=== PATIENT | female | born 1950 | race Caucasian/White ===

== ENCOUNTER 2016-09-22 12:27 | Observation (INO) | payer MEDICARE, OTHER ==
[~2016-09-22] VITALS: Ht 162.6 cm; Wt 65.0 kg
[~2016-09-22 12:27] MED LIST: FURO20 PO; IBUP800T23 PO; SYNT25TA PO; [UNRECOGNIZED DRUG - CODE] PO
[2016-09-22 12:29] VITALS: BP 157/73; PULSE 75; RESP 14; TEMP 97.8; O2SAT 100
[2016-09-22 15:24] VITALS: BP 166/76; PULSE 70; RESP 19; O2SAT 98
[2016-09-22] MEDS ORDERED: DIAZ10TA PO (15:30)
[2016-09-22] MEDS ORDERED: OXYC-395 PO (15:30)
[2016-09-22] MEDS ORDERED: REME15TA PO (15:30)
[2016-09-22] MEDS ORDERED: ONDA1TAB17 PO (15:30)
[2016-09-22] MEDS ORDERED: BUPR150T3 PO (15:30)
[2016-09-22] MEDS ORDERED: FURO40TA PO (15:30)
[2016-09-22] MEDS ORDERED: LEVO100T5 PO (15:30)
[2016-09-22] MEDS ORDERED: [UNRECOGNIZED DRUG - OTHER] PO (15:34)
[2016-09-22] MEDS ORDERED: CINN500C PO (15:43)
[2016-09-22] MEDS ORDERED: VITA8000 PO (15:43)
[2016-09-22] MEDS ORDERED: CHOL100025 CHEW (15:43)
[2016-09-22] MEDS ORDERED: POTA10CA PO (15:43)
[2016-09-22] MEDS ORDERED: OMEG100010 (15:43)
[2016-09-22] MEDS ORDERED: PROBCAP11 (15:43)
[2016-09-22] MEDS ORDERED: DENO120P SQ (15:43)
--- NOTE | 2016-09-22 16:35 | RADRPT ---
EXAM DATE/TIME: 09/22/2016 16:22 [facility] COMPARISON: CT SIMULATION, October 06, 2013, 15:33. INDICATIONS : Patient states she feels weak in right hand since Sep.17. MEDICAL HISTORY : None. SURGICAL HISTORY : None. ENCOUNTER: Initial ACUITY: 1 day PAIN SCORE: 0/10 LOCATION: Bilateral chest FINDINGS: The heart is normal in size. The lungs are clear. The exam does demonstrate an expansile mass involvi ng the right eighth posterior rib. CONCLUSION: 1. Densely calcified expansile mass involving the right posterior eighth rib concerning for metastati c disease. 2. The lungs are clear. Carlos Chand MD on September 22, 2016 at 16:32 Board Certified Radiologist. This report was verified electronically.
--- NOTE | 2016-09-22 16:59 | PD ---
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 The patient states that she is undergoing trial chemotherapy from the [facility] in [place]. She states when she called her physician there, they told her to come in and be evaluated at the closest ER. The patient denies any history of metastatic cervical lesions. She denies any rate metastases at this time. There are no other complaints time my examination. PFSH Past Medical History Anxiety: Yes Cancer: Yes (LEFT BREAST CA TREATED WITH RADIATION AND ORAL CHEMO, METS TO BONE ) High Cholesterol: Yes Chemotherapy: Yes (ORAL ) Diabetes: No Diminished Hearing: No Hepatitis: No Hiatal Hernia: No Thyroid Disease: Yes (HYPO) Tetanus Vaccination: Unknown ?: Not Menopausal: Yes Past Surgical History Hysterectomy: Yes Pacemaker: No Other Surgery: Yes (R BREAST LUMPECTOMY, RECONSTRUCTION SURGERY) Social History Alcohol Use: No Tobacco Use: No Substance Use: No Allergies-Medications (Allergen,Severity, Reaction): Coded Allergies: No Known Allergies (Unverified , 09/22/16) Reported Meds & Prescriptions Reported Meds & Active Scripts Active Reported Probiotic (Probiotic Product) 1 Cap Cap Xgeva Inj (Denosumab) 120 Mg/1.7 Ml Inj 120 Mg SQ Q28D [place] 3 1000 mg ([place]-3 Fatty Acids) 1 Cap Cap Cinnamon 500 Mg Cap 1,000 Mg PO DAILY Vitamin A 8,000 Unit Cap 8,000 Units PO DAILY Vitamin D3 (Cholecalciferol) 1,000 Unit Chew 1,000 Units CHEW DAILY Potassium Chloride ER (Potassium Chloride) 10 Meq Cap 10 Meq PO DAILY [Z-Endoxifen] 80 Mg PO DAILY Furosemide 40 Mg Tab 40 Mg PO DAILY Oxycodone (Oxycodone HCl) 10 Mg Tab 10 Mg PO Q4H PRN Bupropion HCl ER 24 HR (Bupropion HCl) 150 Mg Tab 150 Mg PO DAILY Levothyroxine (Levothyroxine Sodium) 100 Mcg Tab 100 Mcg PO DAILY Ondansetron (Ondansetron HCl) 8 Mg Tab 8 Mg PO TID PRN Diazepam 10 Mg Tab 10 Mg PO TID PRN Remeron (Mirtazapine) 15 Mg Tab 15 Mg PO HS Review of Systems Except as stated in HPI: all other systems reviewed are Neg General / Constitutional: No: Fever, Chills Eyes: No: Diploplia, Blurred Vision HENT: No: Headaches, Lightheadedness, Neck Pain Cardiovascular: No: Chest Pain or Discomfort, Palpitations Gastrointestinal: No: Nausea, Vomiting Musculoskeletal: Positive: Weakness (of right upper extremity), Other (she does have a bony met in the right shoulder.) Neurologic: Positive: Weakness (weakness and paresthesias of the right upper extremity.), Other (area orbital paresthesia.), No: Headache, Change in Mentation, Slurred Speech Physical Exam Narrative GENERAL: Well-developed well-nourished female in no acute respiratory distress. The patient was wearing a facemask because she is undergoing chemotherapy. SKIN: Warm and dry. HEAD: Atraumatic. Normocephalic. EYES: Pupils equal and round. No scleral icterus. No injection or drainage. ENT: TMs clear bilaterally NECK: Trachea midline. Supple CARDIOVASCULAR: Regular rate and rhythm. No murmur appreciated. RESPIRATORY: Clear to auscultation. Breath sounds equal bilaterally. GASTROINTESTINAL: Abdomen soft, non-tender, nondistended. Hepatic and splenic margins not palpable. MUSCULOSKELETAL: No obvious deformities. No clubbing. No cyanosis. No edema. NEUROLOGICAL: Awake and alert. No obvious cranial nerve deficits. Motor grossly within normal limits. Normal speech. I did not appreciate any weakness to her upper extremities when compared with each other. PSYCHIATRIC: Appropriate mood and affect; insight and judgment normal. Data Data Last Documented VS Vital Signs Date Time Temp Pulse Resp B/P Pulse Ox O2 Delivery O2 Flow Rate FiO2 09/22/16 19:00 72 19 137/68 98 Room Air 09/22/16 12:29 97.8 Orders Mri Brain W&W/O Contrast (09/22/16 ) Mri C Spine W&W/O Contrast (09/22/16 ) Complete Blood Count With Diff (09/22/16 15:58) Comprehensive Metabolic Panel (09/22/16 15:58) Urinalysis - C+S If Indicated (09/22/16 15:58) Magnesium (Mg) (09/22/16 15:58) Phosphorus (Po4) (09/22/16 15:58) Chest, Single Ap (09/22/16 15:58) Iv Access Insert/Monitor (09/22/16 15:58) Ecg Monitoring (09/22/16 15:58) Oximetry (09/22/16 15:58) Gadodiamide Pf Inj (Omniscan Pf Inj) (09/22/16 19:44) Dexamethasone Inj (Decadron Inj) (09/22/16 21:00) Admit Order (Ed Use Only) (09/22/16 21:58) Labs Laboratory Tests Test 09/22/16 16:00 White Blood Count 6.4 TH/MM3 Red Blood Count 3.73 MIL/MM3 Hemoglobin 10.9 GM/DL Hematocrit 32.9 % Mean Corpuscular Volume 88.2 FL Mean Corpuscular Hemoglobin 29.3 PG Mean Corpuscular Hemoglobin 33.2 % Concent Red Cell Distribution Width 15.3 % Platelet Count 263 TH/MM3 Mean Platelet Volume 7.0 FL Neutrophils (%) (Auto) 71.9 % Lymphocytes (%) (Auto) 14.6 % Monocytes (%) (Auto) 10.0 % Eosinophils (%) (Auto) 2.9 % Basophils (%) (Auto) 0.6 % Neutrophils # (Auto) 4.6 TH/MM3 Lymphocytes # (Auto) 0.9 TH/MM3 Monocytes # (Auto) 0.6 TH/MM3 Eosinophils # (Auto) 0.2 TH/MM3 Basophils # (Auto) 0.0 TH/MM3 CBC Comment DIFF FINAL Differential Comment Sodium Level 137 MEQ/L Potassium Level 4.5 MEQ/L Chloride Level 104 MEQ/L Carbon Dioxide Level 26.5 MEQ/L Anion Gap 7 MEQ/L Blood Urea Nitrogen 20 MG/DL Creatinine 1.05 MG/DL Estimat Glomerular Filtration 52 ML/MIN Rate Random Glucose 91 MG/DL Calcium Level 8.4 MG/DL Phosphorus Level 3.6 MG/DL Magnesium Level 2.3 MG/DL Total Bilirubin 0.3 MG/DL Aspartate Amino Transf 17 U/L (AST/SGOT) Alanine Aminotransferase 25 U/L (ALT/SGPT) Alkaline Phosphatase 48 U/L Total Protein 6.6 GM/DL Albumin 3.5 GM/DL MDM Medical Decision Making Medical Screen Exam Complete: Yes Emergency Medical Condition: Yes Differential Diagnosis Cervical metastases versus intracranial metastases versus electrolyte abnormalities Narrative Course 66-year-old female with an unfortunate history of metastatic breast cancer, presents here with complaints of right upper extremity weakness and paresthesias as well as periorbital paresthesias. Patient was told to come to the nearest emergency department by her physicians at the [facility] in [place]. The patient has no focal weakness on my examination. Laboratory tests including CBC and BMP mag and phosphate were ordered. An MRI of the brain and cervical spine was also ordered. All of these tests were pending and the patient was signed out to Dr. Amor, physician replacing this physician. Disposition and further treatment will be per Dr. Amor. Diagnoses: Right upper extremity weakness and paresthesias. Periorbital paresthesias, resolved. History of metastatic breast cancer. Jcarlos Granda MD Sep 22, 2016 16:59
[2016-09-22 17:00] VITALS: BP 140/65; PULSE 70; RESP 18; O2SAT 97
[2016-09-22 17:10] LABS: AUTOMATED NEUTROPHIL # 4.6 TH/MM3 (1.8-7.7); BASOPHIL % 0.6 % (0.0-2.0); EOSINOPHIL # 0.2 TH/MM3 (0-0.4); EOSINOPHIL % 2.9 % (0.0-4.0); HEMATOCRIT 32.9 % (35.0-46.0); HEMO FLAGS DIFF FINAL; LYMPH % 14.6 % (9.0-44.0); LYMPHOCYTE # 0.9 TH/MM3 (1.0-4.8); MEAN CELL VOLUME 88.2 FL (80.0-100.0); MEAN CORPUSCULAR HEMOGLOBIN 29.3 PG (27.0-34.0); MEAN CORPUSCULAR HGB CONC 33.2 % (32.0-36.0); NEUT % 71.9 % (16.0-70.0); PLATELET COUNT 263 TH/MM3 (150-450); RED BLOOD COUNT 3.73 MIL/MM3 (4.00-5.30); RED CELL DISTRIBUTION WIDTH 15.3 % (11.6-17.2); WHITE BLOOD COUNT 6.4 TH/MM3 (4.0-11.0)
[2016-09-22 17:35] LABS: ANION GAP 7 MEQ/L (5-15); AST (GOT) 17 U/L (15-37); BICARBONATE 26.5 MEQ/L (21.0-32.0); BLOOD UREA NITROGEN 20 MG/DL (7-18); CHLORIDE 104 MEQ/L (98-107); GLOMERULAR FILTRATION RATE 52 ML/MIN (>89); MAGNESIUM 2.3 MG/DL (1.5-2.5); POTASSIUM 4.5 MEQ/L (3.5-5.1); SODIUM (NA) 137 MEQ/L (136-145)
[2016-09-22 17:38] LABS: ALKALINE PHOSPHATASE 48 U/L (45-117); ALT (GPT) 25 U/L (10-53); TOTAL BILIRUBIN ADULT 0.3 MG/DL (0.2-1.0)
[2016-09-22 19:00] VITALS: BP 137/68; PULSE 72; RESP 19; O2SAT 98
[2016-09-22] MEDS ORDERED: GADODIAMIDE PF 287 MG/ML 5 ML VIAL (for RAD MRI) IV ONE (19:44)
--- NOTE | 2016-09-22 20:05 | RADRPT ---
EXAM DATE/TIME: 09/22/2016 19:13 [facility] COMPARISON: No previous studies available for comparison. INDICATIONS : Metastatic disease. Weakness right side. CONTRAST: 12 cc Omniscan (gadodiamide) IV MEDICAL HISTORY : Metastatic, brain. SURGICAL HISTORY : Hysterectomy. Lumpectomy. ENCOUNTER: Initial ACUITY: 2 day PAIN SCORE: 0/10 LOCATION: c-spine TECHNIQUE: Multiplanar, multisequence MRI examination of the cervical spine was performed. FINDINGS: VERTEBRAE: There are areas of marrow signal alteration involving vertebral elements which are worrisome for meta static disease associated with vague diffuse enhancement. These most conspicuously involve the C2, C6 and T2 vertebral bodies. No significant associated soft tissue mass or anatomic compromise. ALIGNMENT: No evidence of subluxation. CORD: Normal configuration and signal. POST FOSSA: The cerebellar tonsils are normal in position. POST-CONTRAST: No abnormal areas of enhancement are seen. C2-C3: The thecal sac has a normal configuration. There is no evidence of disc herniation or spinal canal stenosis. The neural foramina are patent bilaterally. C3-C4: The thecal sac has a normal configuration. There is no evidence of disc herniation or spinal canal s tenosis. The neural foramina are patent bilaterally. C4-C5: Minimal broad undulating dorsal disc protrusion slightly indenting the thecal sac without significant associated canal or foraminal compromise. C5-C6: Minimal broad dorsal disc protrusion slightly indenting ventral thecal sac without significant canal or foraminal compromise. C6-C7: Minimal broad undulating dorsal disc protrusion slightly indenting ventral thecal sac without signifi cant canal or foraminal compromise. C7-T1: The thecal sac has a normal configuration. There is no evidence of disc herniation or spinal canal s tenosis. The neural foramina are patent bilaterally. CONCLUSION: Probable bony metastatic disease at several levels. Mild disc disease changes. Tomer Caceres MD on September 22, 2016 at 19:58 Board Certified Radiologist. This report was verified electronically.
--- NOTE | 2016-09-22 20:29 | RADRPT ---
EXAM DATE/TIME: 09/22/2016 19:13 [facility] COMPARISON: No previous studies available for comparison. INDICATIONS : Metastatic disease. CONTRAST: 12 cc Omniscan (gadodiamide) IV MEDICAL HISTORY : Metastatic, breast. SURGICAL HISTORY : Hysterectomy. Lumpectomy. ENCOUNTER: Initial ACUITY: 2 day PAIN SCORE: 0/10 LOCATION: head TECHNIQUE: Multiplanar, multisequence MRI of the brain was performed both prior to and following the administrat ion of paramagnetic contrast. FINDINGS: There is an infiltrating mass involving the left frontoparietal calvarium with extension intracranial ly and extracranially. The intracranial component has a thickness of about 18 mm and significantly co mpresses the underlying brain. There is moderate vasogenic edema involving the left parietal and occi pital brain, however I do not clearly see any abnormal brain parenchymal contrast enhancement. There is moderate compression of the lateral lateral ventricle posterior horn. Minimal subfalcine shift fro m left to right on the order of a few millimeters. The paramesencephalic cisterns on the left are gisselle wing early effacement. Elsewhere, the marrow signal of the calvarium shows fairly widespread signal h eterogeneity worrisome for infiltrating neoplastic involvement of much of the remaining skull without significant associated extraosseous soft tissue extension. There is no evidence of intracranial hemorrhage. There is nothing to suggest acute infarction. 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 Left parietal calvarial neoplastic involvement associated w ith significant intra-and extracranial soft tissue component with moderate signal changes and aditya esteban of the underlying left parieto-occipital brain. Tomer Caceres MD on September 22, 2016 at 20:19 Board Certified Radiologist. This report was verified electronically.
--- NOTE | 2016-09-22 20:33 | PD ---
Physical Exam Narrative Received sign out from previous team to follow up results of MRI brain and cervical spine. Please refer to Dr. Granda's note for full history. Pt is a 66yo F with PMH of metastatic breast cancer with metastasis to the spine. Pt follows with oncologist Dr. Marshall at [facility]. She also follows with Dr. Foley. Pt is complaining of weakness in her right car salter for 3 days. Feels that when she picks up objects, it slips out. On my examination and previous provider's she had full car salter and muscle strength in bilateral upper extremities. Sensation equal. No cervical spine ttp. Neuro exam was normal for me. CXR showed densely calcified expansile mass right posterior eighth rib concerning for metastatic disease. Pt has no c/o chest pain or sob. MRI brain showed presumed metastatic disease to skull. Left parietal calvarial neoplastic involvement associated with significant intra and extracranial soft tissue component with moderate signal changes and compression of underlying left parieto-occipital brain. MRI cervical spine showed probable bony metastatic disease at several levels. Pt is currently on endoxifen trial at [facility] 8mg daily for [address] Baig who is covering Dr. Marshall and she recommended decadron, admission for observation and consulting radiation oncology. Dr. Baig states the metastasis to the brain is new. Discussed with pt and she agrees with plan. Discussed with Dr. Valdovinos and accepted for admission. Data Data Last Documented VS Vital Signs Date Time Temp Pulse Resp B/P Pulse Ox O2 Delivery O2 Flow Rate FiO2 09/22/16 19:00 72 19 137/68 98 Room Air 09/22/16 12:29 97.8 Orders Mri Brain W&W/O Contrast (09/22/16 ) Mri C Spine W&W/O Contrast (09/22/16 ) Complete Blood Count With Diff (09/22/16 15:58) Comprehensive Metabolic Panel (09/22/16 15:58) Urinalysis - C+S If Indicated (09/22/16 15:58) Magnesium (Mg) (09/22/16 15:58) Phosphorus (Po4) (09/22/16 15:58) Chest, Single Ap (09/22/16 15:58) Iv Access Insert/Monitor (09/22/16 15:58) Ecg Monitoring (09/22/16 15:58) Oximetry (09/22/16 15:58) Gadodiamide Pf Inj (Omniscan Pf Inj) (09/22/16 19:44) Dexamethasone Inj (Decadron Inj) (09/22/16 21:00) Admit Order (Ed Use Only) (09/22/16 21:58) Labs Laboratory Tests Test 09/22/16 16:00 White Blood Count 6.4 TH/MM3 Red Blood Count 3.73 MIL/MM3 Hemoglobin 10.9 GM/DL Hematocrit 32.9 % Mean Corpuscular Volume 88.2 FL Mean Corpuscular Hemoglobin 29.3 PG Mean Corpuscular Hemoglobin 33.2 % Concent Red Cell Distribution Width 15.3 % Platelet Count 263 TH/MM3 Mean Platelet Volume 7.0 FL Neutrophils (%) (Auto) 71.9 % Lymphocytes (%) (Auto) 14.6 % Monocytes (%) (Auto) 10.0 % Eosinophils (%) (Auto) 2.9 % Basophils (%) (Auto) 0.6 % Neutrophils # (Auto) 4.6 TH/MM3 Lymphocytes # (Auto) 0.9 TH/MM3 Monocytes # (Auto) 0.6 TH/MM3 Eosinophils # (Auto) 0.2 TH/MM3 Basophils # (Auto) 0.0 TH/MM3 CBC Comment DIFF FINAL Differential Comment Sodium Level 137 MEQ/L Potassium Level 4.5 MEQ/L Chloride Level 104 MEQ/L Carbon Dioxide Level 26.5 MEQ/L Anion Gap 7 MEQ/L Blood Urea Nitrogen 20 MG/DL Creatinine 1.05 MG/DL Estimat Glomerular Filtration 52 ML/MIN Rate Random Glucose 91 MG/DL Calcium Level 8.4 MG/DL Phosphorus Level 3.6 MG/DL Magnesium Level 2.3 MG/DL Total Bilirubin 0.3 MG/DL Aspartate Amino Transf 17 U/L (AST/SGOT) Alanine Aminotransferase 25 U/L (ALT/SGPT) Alkaline Phosphatase 48 U/L Total Protein 6.6 GM/DL Albumin 3.5 GM/DL [facility] Supervised Visit with [facility]: No Diagnosis Primary Impression: Metastatic cancer to brain Admitting Information Admitting Physician Requests: Observation Scripts Glucocom Test Strips 1 Dora Dora #1 Ea .route As Directed Prov:Domonique Madrigal PA-C 09/23/16 Lancets 1 Mis Mis #1 EA .ROUTE DIRECTED Ref 0 Prov:Domonique Madrigal PA-C 09/23/16 Blood Glucose Monitoring W/Device (Glucocom Blood Glucose Mo W/Device)1 Kit Kit #1 Kit .route As Directed Prov:Domonique Madrigal PA-C 09/23/16 Pantoprazole 40 Mg Tab40 Mg PO DAILY #7 TAB Prov:Domonique Madrigal PA-C 09/23/16 Dexamethasone 4 Mg Tab4 Mg PO Q6HR #28 TAB Ref 0 Prov:Domonique Madrigal PA-C 09/23/16 Naheed Amor DO Sep 22, 2016 20:33
[2016-09-22] MEDS ORDERED: DEXAMETHASONE SOD PHOS 20 MG/5 ML VIAL IV PUSH ONE (21:00)
[2016-09-22] MEDS ORDERED: SODIUM CHLORIDE 0.9% FLUSH 5 ML FLUSH FLUSH PRN (22:00)
[2016-09-22] MEDS ORDERED: PANTOPRAZOLE SODIUM 40 MG VIAL IV PUSH SCH (22:00)
[2016-09-22] MEDS ORDERED: NALOXONE HCL 0.4 MG/ML AMP IV PRN (22:00)
[2016-09-22] MEDS ORDERED: MORPHINE SULFATE 4 MG/ML INJ IV PUSH PRN (22:15)
[2016-09-22] MEDS ORDERED: ONDANSETRON HCL 4 MG/2 ML VIAL IV PUSH PRN (22:15)
[2016-09-22] MEDS ORDERED: DIAZEPAM 10 MG TAB PO PRN (22:15)
[2016-09-22 23:41] VITALS: BP 134/75
[2016-09-23 00:09] VITALS: BP 253/118
[2016-09-23 00:15] VITALS: BP 121/67; PULSE 69; RESP 18; TEMP 97.8; O2SAT 95
[2016-09-23 00:47] VITALS: PULSE 64
[2016-09-23] MEDS: DEXAMETHASONE SOD PHOS 4 MG/ML VIAL IV PUSH SCH ×2 (02:52→08:51)
[2016-09-23 04:24] VITALS: BP 116/66; PULSE 65; RESP 20; TEMP 97.6; O2SAT 96
[2016-09-23] MEDS ORDERED: ACETAMINOPHEN 325 MG TAB PO PRN (04:45)
[2016-09-23] MEDS ORDERED: CALCIUM CARBONATE 500 MG CHEWABLE TAB CHEW PRN (04:45)
[2016-09-23] MEDS ORDERED: DOCUSATE SODIUM 50 MG/SENNA 8.6 MG TAB PO PRN (04:45)
[2016-09-23] MEDS ORDERED: DOCUSATE SODIUM 100 MG CAP PO PRN (04:45)
[2016-09-23 05:24] LABS: BASOPHIL % 0.3 % (0.0-2.0); EOSINOPHIL % 0.1 % (0.0-4.0); HEMATOCRIT 32.2 % (35.0-46.0); HEMO FLAGS DIFF FINAL; LYMPH % 8.3 % (9.0-44.0); LYMPHOCYTE # 0.6 TH/MM3 (1.0-4.8); MEAN CORPUSCULAR HEMOGLOBIN 29.7 PG (27.0-34.0); MEAN CORPUSCULAR HGB CONC 34.1 % (32.0-36.0); MONO % 1.5 % (0.0-8.0); NEUT % 89.8 % (16.0-70.0); PLATELET COUNT 249 TH/MM3 (150-450); WHITE BLOOD COUNT 6.7 TH/MM3 (4.0-11.0)
--- NOTE | 2016-09-23 05:35 | HHI.HP ---
[facility] Primary Care Physician No Primary Care Physician Admission Diagnosis Metastatic cancer to brain Diagnoses: Chief Complaint: Right hand weakness Travel History International Travel<30 Days: No Contact w/Intl Traveler <30 Da: No Traveled to Known Affected Are: No History of Present Illness History taken from patient and ED physician. This is a very pleasant 64-year-old female with a history of breast cancer with metastases to the brain, lung and spine who is currently in a chemotherapy trial at [facility]. Patient came in to the ED with complaints of right hand weakness that began on , she noticed she was not able to hold objects in her hand without dropping them. Per the ER physician her radiation oncologist from [facility] was called and they recommended her be admitted for an evaluation by radiation oncology and started on Decadron. Dr. Foley is her oncologist at [facility]. Patient denies any associated symptoms apart from the right hand weakness, no chest pain, short of breath or fevers. She does present with bilateral lower extremity +1 edema, in which she states is normal and there has been no increase in her lower extremities. She denies any calf tenderness, or history of DVTs or PEs. Review of Systems Constitutional: DENIES: Fever, Chills Respiratory: DENIES: Cough, Shortness of breath Cardiovascular: COMPLAINS OF: Lower Extremity Edema (chronic), DENIES: Chest pain, Syncope Gastrointestinal: DENIES: Constipation, Diarrhea, Nausea, Vomiting Musculoskeletal: DENIES: Back pain, Neck pain Integumentary: DENIES: Rash Hematologic/lymphatic: DENIES: Lymphadenopathy Immunologic/allergic: DENIES: Urticaria Neurologic: COMPLAINS OF: Localized weakness Past Family Social History Past Medical History Hyperthyroidism Depression Anxiety Breast cancer 2005-post oral chemotherapy and lumpectomy Lumbar spine CA-radiation 2011 Dyslipidemia Past Surgical History Lumpectomy Hysterectomy Reported Medications Reported Meds & Active Scripts Active Reported Probiotic (Probiotic Product) 1 Cap Cap Xgeva Inj (Denosumab) 120 Mg/1.7 Ml Inj 120 Mg SQ Q28D [place] 3 1000 mg ([place]-3 Fatty Acids) 1 Cap Cap Cinnamon 500 Mg Cap 1,000 Mg PO DAILY Vitamin A 8,000 Unit Cap 8,000 Units PO DAILY Vitamin D3 (Cholecalciferol) 1,000 Unit Chew 1,000 Units CHEW DAILY Potassium Chloride ER (Potassium Chloride) 10 Meq Cap 10 Meq PO DAILY [Z-Endoxifen] 80 Mg PO DAILY Furosemide 40 Mg Tab 40 Mg PO DAILY Oxycodone (Oxycodone HCl) 10 Mg Tab 10 Mg PO Q4H PRN Bupropion HCl ER 24 HR (Bupropion HCl) 150 Mg Tab 150 Mg PO DAILY Levothyroxine (Levothyroxine Sodium) 100 Mcg Tab 100 Mcg PO DAILY Ondansetron (Ondansetron HCl) 8 Mg Tab 8 Mg PO TID PRN Diazepam 10 Mg Tab 10 Mg PO TID PRN Remeron (Mirtazapine) 15 Mg Tab 15 Mg PO HS Allergies: Coded Allergies: No Known Allergies (Unverified , 09/22/16) Active Ordered Medications Current Medications Medications (Trade) Dose Ordered Sig/Kiana Route Start Time Stop Time Status Last Admin (NS Flush) 2 ml UNSCH PRN FLUSH 09/22/16 22:00 (NS Flush) 2 ml BID FLUSH 09/23/16 09:00 (Lovenox Inj) 40 mg Q24H SQ 09/23/16 09:00 (Narcan Inj) 0.4 mg UNSCH PRN IV 09/22/16 22:00 (Decadron Inj) 4 mg Q6H IV PUSH 09/23/16 03:00 09/23/16 02:52 (Wellbutrin Sr) 150 mg DAILY PO 09/23/16 09:00 (Valium) 10 mg TID PRN PO 09/22/16 22:15 (Lasix) 40 mg DAILY PO 09/23/16 09:00 (Synthroid) 100 mcg DAILY@0600 PO 09/23/16 06:00 09/23/16 05:06 (Remeron) 15 mg HS PO 09/23/16 21:00 (Morphine Inj) 2 mg Q3H PRN IV PUSH 09/22/16 22:15 (Zofran Inj) 4 mg Q6HR PRN IV PUSH 09/22/16 22:15 (Roxicodone) 10 mg Q4H PRN PO 09/23/16 04:45 (Tylenol) 650 mg Q4H PRN PO 09/23/16 04:45 (Colace) 100 mg BID PRN PO 09/23/16 04:45 (Caitlin-Colace) 1 tab BID PRN PO 09/23/16 04:45 (Tums Chew) 1,000 mg TID PRN CHEW 09/23/16 04:45 (Protonix) 40 mg DAILY PO 09/23/16 09:00 Family History Dad: CAD, cancer Mom: [place] Social History Tobacco use: Denies Alcohol use: Denies Illicit drug use: Denies Physical Exam Vital Signs Vital Signs Date Time Temp Pulse Resp B/P Pulse Ox O2 Delivery O2 Flow Rate FiO2 09/23/16 04:24 97.6 65 20 116/66 96 09/23/16 00:47 64 09/23/16 00:15 97.8 69 18 121/67 95 09/23/16 00:09 09/22/16 23:41 70 19 134/75 99 09/22/16 19:00 72 19 137/68 98 Room Air 09/22/16 17:00 70 18 140/65 97 Room Air 09/22/16 15:31 77 18 99 Room Air 09/22/16 15:24 70 19 166/76 98 Room Air 09/22/16 12:29 97.8 75 14 157/73 100 Room Air Physical Exam GENERAL: This is a well-nourished, pleasant patient, in no apparent distress. SKIN: No rashes, ecchymoses or lesions. Cool and dry. HEAD: Atraumatic. Normocephalic. EYES: Pupils equal round and reactive. ENT: Nose without bleeding, purulent drainage or septal hematoma. Airway patent. NECK: Trachea midline. No JVD CARDIOVASCULAR: Regular rate and rhythm without murmurs, gallops, or rubs. RESPIRATORY: Clear to auscultation. Breath sounds equal bilaterally. No wheezes , rales, or rhonchi. GASTROINTESTINAL: Abdomen soft, non-tender, nondistended. MUSCULOSKELETAL: Bilateral lower extremity +1 edema. No calf tenderness. NEUROLOGICAL: Awake and alert. Decreased fine motor in right hand. 4 out of 5 muscle strength in right hand. Normal speech. Laboratory Laboratory Tests Test 09/22/16 16:00 White Blood Count 6.4 Red Blood Count 3.73 Hemoglobin 10.9 Hematocrit 32.9 Mean Corpuscular Volume 88.2 Mean Corpuscular Hemoglobin 29.3 Mean Corpuscular Hemoglobin 33.2 Concent Red Cell Distribution Width 15.3 Platelet Count 263 Mean Platelet Volume 7.0 Neutrophils (%) (Auto) 71.9 Lymphocytes (%) (Auto) 14.6 Monocytes (%) (Auto) 10.0 Eosinophils (%) (Auto) 2.9 Basophils (%) (Auto) 0.6 Neutrophils # (Auto) 4.6 Lymphocytes # (Auto) 0.9 Monocytes # (Auto) 0.6 Eosinophils # (Auto) 0.2 Basophils # (Auto) 0.0 CBC Comment DIFF FINAL Differential Comment Sodium Level 137 Potassium Level 4.5 Chloride Level 104 Carbon Dioxide Level 26.5 Anion Gap 7 Blood Urea Nitrogen 20 Creatinine 1.05 Estimat Glomerular Filtration 52 Rate Random Glucose 91 Calcium Level 8.4 Phosphorus Level 3.6 Magnesium Level 2.3 Total Bilirubin 0.3 Aspartate Amino Transf 17 (AST/SGOT) Alanine Aminotransferase 25 (ALT/SGPT) Alkaline Phosphatase 48 Total Protein 6.6 Albumin 3.5 Result Diagram: 09/22/16 1600 09/22/16 1600 Imaging Last Impressions Chest X-Ray 09/22/16 1558 Signed Impressions: Service Date/Time: Thursday, September 22, 2016 16:22 - CONCLUSION: 1. Densely calcified expansile mass involving the right posterior eighth rib concerning for metastatic disease. 2. The lungs are clear. Carlos Chand MD Cervical Spine MRI 09/22/16 0000 Signed Impressions: Service Date/Time: Thursday, September 22, 2016 19:13 - CONCLUSION: Probable bony metastatic disease at several levels. Mild disc disease changes. 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 Left parietal calvarial neoplastic involvement associated with significant intra-and extracranial soft tissue component with moderate signal changes and compression of the underlying left parieto- occipital brain. Tomer Caceres MD Assessment and Plan Problem List: (1) Metastatic cancer to brain ICD Code: C79.31 Status: Acute (2) Anxiety and depression ICD Code: F41.9 Status: Acute (3) Hypothyroidism ICD Code: E03.9 Status: Acute Assessment and Plan 66-year-old female with a history of hypothyroidism, depression, anxiety, breast cancer with metastases to the brain and spine presented with: Metastatic cancer to brain/spine Images reviewed: Brain MRI shows presumed metastatic disease to the skull, left parietal calvarial or neoplastic involvement associated with significant intra- and extracranial soft tissues Chest x-ray shows densely calcified mass involving the right posterior eighth rib, cervical spine x-ray shows bone metastatic disease at several levels. - ER physician did consult with [facility] oncology -Consulted radiation oncology -Dexamethasone IV every 6 -Neuro checks -Pain management with IV morphine and Roxicodone every 4 Anxiety/depression, chronic -Resume home medications: Wellbutrin, BuSpar, Valium Hypothyroidism, chronic -Resumed home medications levothyroxine DVT prophylaxis: Lovenox GI prophylaxis Protonix Written by Reanna ROSS, acting as scribe for Dr. Valdovinos on 09/23/16 at 0334. The documentation accurately reflects the work performed [id number] and decisions made by me and the physician Dr Valdovinos on 09/23/16. The documentation accurately reflects the work performed [id number] by me on at 0334 Discussed Condition With Patient and ED physician Reanna Massey Sep 23, 2016 05:35 Irma Valdovinos MD Oct 01, 2016 08:12
[2016-09-23 05:42] LABS: BICARBONATE 26.3 MEQ/L (21.0-32.0); MAGNESIUM 2.6 MG/DL (1.5-2.5); POTASSIUM 4.6 MEQ/L (3.5-5.1)
[2016-09-23] MEDS ORDERED: LEVOTHYROXINE SODIUM 100 MCG TAB PO SCH (06:00)
[2016-09-23 07:36] VITALS: BP 147/77; PULSE 70; RESP 18; TEMP 97.2; O2SAT 97
[2016-09-23] MEDS ORDERED: FUROSEMIDE 40 MG TAB PO SCH (09:00)
[2016-09-23] MEDS ORDERED: SODIUM CHLORIDE 0.9% FLUSH 5 ML FLUSH FLUSH SCH (09:00)
[2016-09-23] MEDS ORDERED: ENOXAPARIN SODIUM 40 MG/0.4 ML SYRINGE SQ SCH (09:00)
[2016-09-23] MEDS ORDERED: PANTOPRAZOLE SOD 40 MG DELAYED RELEASE TAB PO SCH (09:00)
[2016-09-23] MEDS ORDERED: buPROPion HCL 150 MG SUSTAINED RELEASE TAB PO SCH (09:00)
[2016-09-23] MEDS ORDERED: DEXA4TAB PO ×2 (11:20→12:29)
[2016-09-23] MEDS ORDERED: PANT40TA3 PO ×2 (11:21→12:29)
--- NOTE | 2016-09-23 11:22 | HHI.DCPOC ---
Discharge Care Plan Diagnosis: (1) Metastatic cancer to brain (2) Weakness of both arms Goals to Promote Your Health * To prevent worsening of your condition and complications * To maintain your health at the optimal level Directions to Meet Your Goals Take your medications as prescribed Follow your dietary instruction Follow activity as directed Keep your appointments as scheduled Take your immunizations and boosters as scheduled If your symptoms worsen call your PCP, if no PCP go to Urgent Care Center or Emergency Room Smoking is Dangerous to Your Health. Avoid second hand smoke Call the 24-hour hour crisis hotline for domestic abuse at Domonique Madrigal PA-C Sep 23, 2016 11:21
[2016-09-23 11:55] VITALS: BP 134/78; PULSE 83; RESP 16; TEMP 98.7; O2SAT 95
--- NOTE | 2016-09-23 12:32 | HHI.FF ---
Face to Face Verification Diagnosis: (1) Metastatic cancer to brain (2) Weakness of both arms (3) Hypothyroidism (4) Steroid-induced hyperglycemia Home Health Nursing Order: Medical education Signs/symptoms of disease process Diabetic education (monitor blood glucose while on steroids, follow up on HgbA1c done in hospital) Nursing assessment with vital signs I have seen patient Merry Walden on 09/23/16. My clinical findings support the need for the requested home health care services because: Ltd mobility - disease progression Deconditioned w/ increased weakness Limited ability to care for self I certify that my clinical findings support that this patient is homebound because: Impaired cognitive ability/safety Unsteady gait/balance Unsafe to leave home unassisted Domonique Madrigal PA-C Sep 23, 2016 12:32 pm
--- NOTE | 2016-09-23 12:35 | MB ---
cc: AAYUSH PRESLEY M.D., PAUL M. M.D. DATE OF CONSULTATION 09/23/2016 DATE OF 1950 [facility] NUMBER: [id number] BRIEF HISTORY AND CHIEF COMPLAINT This lady was seen in the emergency room when requested for consultation. It would appear that over the past four days she had developed some weakness associated with loss of fine motor skills, associated with her right arm and hand. She apparently had a 20-minute interval where she had some tremulousness associated with her right hand and described a sensation around her lips associated with this. She was ultimately seen in the emergency room where she has gone on to undergo an MRI of her brain and an MRI of her cervical spine. These revealed evidence of metastatic disease. In the brain there was a lesion in the left parietal calvarial position that had both intracranial and extracranial soft tissue component with moderate signal changes and compression of the underlying left parietooccipital brain which was associated with some edema. The MRI of her cervical spine revealed probable bony metastatic disease particularly at the C2, C6 and T2 levels. This lady denied any other symptoms. She denied pain, headaches, nausea, vomiting, overt seizures or other symptoms. She has known metastatic breast cancer. Her care has been managed principally by Dr. Foley and her physicians at the [facility]. She is currently on a study in which she is on Endoxifen. She has been in contact with her study physician and upon discharge today is being seen at the [facility] tomorrow for assessment. She has undergone previous radiation treatment at this facility under Dr. Jasso's care. She has had radiation treatment to L1, L4, S1 and her pelvis. She has had previous radiation treatment to her primary breast tumor. This treatment was delivered in [place]. PAST MEDICAL AND SURGICAL HISTORY 1. History of hypertension. 2. Metastatic breast cancer for which she has undergone previous radiation treatment and chemotherapy as documented above. She is currently a study patient at the [facility] with her care also being coordinated by Dr. Foley. ALLERGIES None known. REPORTED MEDICATIONS 1. Probiotic. 2. Xgeva. 3. [place] 3. 4. Cinnamon. 5. Vitamin A. 6. Vitamin D. 7. Potassium chloride. 8. Furosemide. 9. Endoxifen on study. 10. Oxycodone p.r.n. 11. Buproprion. 12. Levothyroxine 100 mcg a day. 13. Ondansetron. 14. Diazepam. 15. Remeron. REVIEW OF SYSTEMS Documented in her chart. She does have some intermittent back pain which is significantly improved from when I last saw her. She takes occasional narcotics for this. She has had weakness in her right hand as indicated. She otherwise denies any new cardiovascular, respiratory, eye, ears, nose or throat, neurologic, GI, or other complaints. PHYSICAL EXAMINATION GENERAL: She looks well. She is alert and oriented, speaking clearly, in no distress. HEAD AND NECK: Exam reveals no jaundice. Pupils are equal and reactive. Oral cavity was normal. There is no adenopathy in her head and neck. LUNGS: Her lung mckeon were clear. CARDIOVASCULAR: Heart sounds are normal. ABDOMEN: No abdominal masses or tenderness. NEUROLOGIC: Moving all limbs normally. 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 REVIEW OF DATA I have reviewed this lady's brain MRI and cervical spine MRI with her today. I have told her that she does have extracranial disease which is extending through the bone, putting pressure on the brain matter and causing edema and I have to assume this is causing her symptoms. I have told her that I do not expect that she is a surgical candidate and that her best treatment would be with radiation treatment. Her care is principally managed at the [facility]. She is going to be taking a DVD disk of the MR scans with her tomorrow. We would be happy to coordinate radiation care for her but she may choose to have this delivered at the [facility]. She will contact us should contact if she needs us. MD IVETTE Carballo/MARY /11:35 AM 12:18 PM
--- NOTE | 2016-09-23 12:44 | HHI.PR ---
Subjective Remarks Follow up for b/l upper extremity weakness with metastatic cancer. The patient reports continued weakness of b/l upper extremities, she states actually her strength is ok, however she cannot write, cannot keep the phone in her hand, constantly dropping items. She has been seen by radiation oncology and cleared for discharge. She has already scheduled an appointment with her oncologist Dr. Marshall tomorrow morning at 10:45am. Discussed arranging [facility] to monitor BP and blood glucose while on steroids, patient is agreeable. She has been seen by PT, discussed with PT in the room, the patient did well with walking, does not need any physical therapy at discharge, however gave list of home exercises to keep strength. The patient overall feels well and wants to go home. Objective Vitals Vital Signs Date Time Temp Pulse Resp B/P Pulse Ox O2 Delivery O2 Flow Rate FiO2 09/23/16 11:55 98.7 83 16 134/78 95 09/23/16 07:36 97.2 70 18 147/77 97 09/23/16 04:24 97.6 65 20 116/66 96 09/23/16 00:47 64 09/23/16 00:15 97.8 69 18 121/67 95 09/23/16 00:09 09/22/16 23:41 70 19 134/75 99 09/22/16 19:00 72 19 137/68 98 Room Air 09/22/16 17:00 70 18 140/65 97 Room Air 09/22/16 15:31 77 18 99 Room Air 09/22/16 15:24 70 19 166/76 98 Room Air Result Diagram: 09/23/16 0456 09/23/16 0456 Imaging Last Impressions Chest X-Ray 09/22/16 1558 Signed Impressions: Service Date/Time: Thursday, September 22, 2016 16:22 - CONCLUSION: 1. Densely calcified expansile mass involving the right posterior eighth rib concerning for metastatic disease. 2. The lungs are clear. Carlos Chand MD Cervical Spine MRI 09/22/16 0000 Signed Impressions: Service Date/Time: Thursday, September 22, 2016 19:13 - CONCLUSION: Probable bony metastatic disease at several levels. Mild disc disease changes. 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 Left parietal calvarial neoplastic involvement associated with significant intra-and extracranial soft tissue component with moderate signal changes and compression of the underlying left parieto- occipital brain. Tomer Caceres MD Objective Remarks GENERAL: Well-nourished, well-developed pleasant female patient in NAD. Sitting upright on side of bed. SKIN: Warm and dry. No rash. HEAD: Normocephalic. Atraumatic. EYES: Pupils equal and round. No scleral icterus. No injection or drainage. ENT: No nasal bleeding or discharge. Mucous membranes pink and moist. NECK: Supple. Trachea midline. CARDIOVASCULAR: Regular rate and rhythm. S1, S2 noted. No murmur appreciated. RESPIRATORY: No accessory muscle use. Clear to auscultation. Breath sounds equal bilaterally. GASTROINTESTINAL: Abdomen soft, non-tender, nondistended. Normoactive bowel sounds x4. MUSCULOSKELETAL: No obvious deformities. Extremities without clubbing, cyanosis , or edema. NEUROLOGICAL: Awake and alert. No obvious cranial nerve deficits. Motor grossly within normal limits. 5/5 muscle strength in bilateral upper and lower extremities. Normal speech. PSYCHIATRIC: Appropriate mood and affect; insight and judgment normal. Medications and IVs Current Medications Medications (Trade) Dose Ordered Sig/Kiana Route Start Time Stop Time Status Last Admin (NS Flush) 2 ml UNSCH PRN FLUSH 09/22/16 22:00 (NS Flush) 2 ml BID FLUSH 09/23/16 09:00 09/23/16 08:52 (Lovenox Inj) 40 mg Q24H SQ 09/23/16 09:00 (Narcan Inj) 0.4 mg UNSCH PRN IV 09/22/16 22:00 (Decadron Inj) 4 mg Q6H IV PUSH 09/23/16 03:00 09/23/16 08:51 (Wellbutrin Sr) 150 mg DAILY PO 09/23/16 09:00 09/23/16 08:52 (Valium) 10 mg TID PRN PO 09/22/16 22:15 (Lasix) 40 mg DAILY PO 09/23/16 09:00 09/23/16 08:52 (Synthroid) 100 mcg DAILY@0600 PO 09/23/16 06:00 09/23/16 05:06 (Morphine Inj) 2 mg Q3H PRN IV PUSH 09/22/16 22:15 (Zofran Inj) 4 mg Q6HR PRN IV PUSH 09/22/16 22:15 (Roxicodone) 10 mg Q4H PRN PO 09/23/16 04:45 (Tylenol) 650 mg Q4H PRN PO 09/23/16 04:45 (Colace) 100 mg BID PRN PO 09/23/16 04:45 (Caitlin-Colace) 1 tab BID PRN PO 09/23/16 04:45 (Tums Chew) 1,000 mg TID PRN CHEW 09/23/16 04:45 (Protonix) 40 mg DAILY PO 09/23/16 09:00 09/23/16 08:51 Urinary Catheter: No A/P Problem List: (1) Metastatic cancer to brain ICD Code: C79.31 Status: Acute (2) Anxiety and depression ICD Code: F41.9 Status: Acute (3) Hypothyroidism ICD Code: E03.9 Status: Acute Assessment and Plan 66-year-old female with a history of hypothyroidism, depression, anxiety, breast cancer with metastases to the brain and spine presented with: Metastatic cancer to brain/spine Images reviewed: Brain MRI shows presumed metastatic disease to the skull, left parietal calvarial or neoplastic involvement associated with significant intra- and extracranial soft tissues Chest x-ray shows densely calcified mass involving the right posterior eighth rib, cervical spine x-ray shows bone metastatic disease at several levels. - ER physician discussed with [facility] oncology who recommended decadron and consult to radiation oncology -Consulted radiation oncology, seen by Dr. Muñoz, cleared for discharge on decadron, f/up with [place] tomorrow, patient has appt at 10:45am -Given Dexamethasone IV every 6, will discharge on 4mg po q6h -Neuro checks -Pain management with IV morphine and Roxicodone q4h -PT consulted, no PT needed at discharge Hyperglycemia: likely steroid induced -checking HgbA1c -discussed with the patient, arranging [facility] RN to monitor blood glucose and BP while on steroids Anxiety/depression, chronic -Resume home medications: Wellbutrin, BuSpar, Valium Hypothyroidism, chronic -Resumed home medications levothyroxine DVT prophylaxis: Lovenox GI prophylaxis Protonix Discharge Planning Discussed with Dr. Aguirre, cleared for discharge. Discussed with physical therapist and case management. Discharge patient to home with [facility] Condition on discharge: Improved Regular Diet as tolerated Ad [place]olly activity Rx written: Decadron po 4mg q6h x1week, Protonix 40mg daily x1week Follow-up with primary care physician and oncologist as scheduled tomorrow 09/24 at 10:45am Domonique Madrigal PA-C Sep 23, 2016 12:44
[2016-09-23] MEDS ORDERED: GLUCTES12 (13:01)
[2016-09-23] MEDS ORDERED: GLUCKIT15 (13:01)
[2016-09-23] MEDS ORDERED: LANCETS1 MI1 (13:01)
[2016-09-23 16:00] LABS: HEMOGLOBIN A1a 1.3 %; HEMOGLOBIN A1b 0.8 %; HEMOGLOBIN Ao 83.9 %; HEMOGLOBIN F 1.6 %; HEMOGLOBIN LA1C 2.5 %; HEMOGLOBIN P3 4.1 %
[2016-09-23] MEDS ORDERED: MIRTAZAPINE 15 MG TAB PO SCH (21:00)
== END 2016-09-23 14:13 | disposition home or self-care (01) ==
LOC: NEPA 12:27 → NEDA 22:00 → NEPFCDU 09-23 00:08
PROVIDERS: ADMIT Internal Medicine; ATTEND Internal Medicine
DX: R53.1 Weakness (principal); R20.2 Paresthesia of skin; Z85.3 Personal history of malignant neoplasm of breast; C79.51 Secondary malignant neoplasm of bone; E78.00 Pure hypercholesterolemia, unspecified; Z79.899 Other long term (current) drug therapy; C79.31 Secondary malignant neoplasm of brain; R60.9 Edema, unspecified; E78.5 Hyperlipidemia, unspecified
CPT/HCPCS: 70553; 71010; 72156; 80048; 80053; 83036; 83735; 84100; 85025; 96374; 97162; 99285; A9579; C9113; G0378; G8987; G8988; J1100; 99222